=== PATIENT | female | born 1965 | race Caucasian/White ===

== ENCOUNTER 2017-05-15 13:33 | Emergency (ER) | payer OTHER ==
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
[2017-05-15 16:10] VITALS: BP 130/67; PULSE 58; RESP 16; TEMP 98.1; O2SAT 98
== END 2017-05-15 16:09 | disposition home or self-care (01) ==
DX: S16.1XXA Strain of muscle, fascia and tendon at neck level, initial encounter (principal); M62.830 Muscle spasm of back; V43.53XA Car driver injured in collision with pick-up truck in traffic accident, initial encounter; Y92.410 Unspecified street and highway as the place of occurrence of the external cause